=== PATIENT | male | born 1955 | race Caucasian/White ===

== ENCOUNTER 2016-04-18 10:45 | Outpatient (CLI) | payer MEDICAID | END 2016-04-18 10:46 | disposition home or self-care (01) | DX: E78.5 Hyperlipidemia, unspecified (principal) ==

== ENCOUNTER 2016-10-01 10:07 | Outpatient (CLI) | payer MEDICAID ==
[2016-10-01 18:01] LABS: BILIRUBIN,URINE NEGATIVE (NEGATIVE)
[2016-10-01 19:35] LABS: UR CULTURE IF IND INDICATED; WBC,URINE >25 /HPF (0-3)
== END 2016-10-01 10:08 | disposition home or self-care (01) ==
LOC: LAB.F 10:07
PROVIDERS: ATTEND Urology
DX: R35.0 Frequency of micturition (principal)
CPT/HCPCS: 81001; 87077; 87086

== ENCOUNTER 2016-12-27 08:20 | Outpatient (CLI) | payer MEDICAID ==
[2016-12-27 14:13] LABS: BASOPHILS % (AUTO) 0.4 %; EOSINOPHILS # (AUTO) 0.3 10^3/uL (0.0-0.7); EOSINOPHILS % (AUTO) 3.8 %; HCT - HEMATOCRIT 42.9 % (42.0-52.0); HGB - HEMOGLOBIN 14.2 g/dL (14.0-18.0); LYMPHOCYTES # (AUTO) 1.6 10^3/uL (1.5-3.5); LYMPHOCYTES % (AUTO) 23.7 %; MEAN CORPUSCULAR HEMOGLOBIN 27.9 pg (27.0-31.0); MEAN CORPUSCULAR VOLUME 84.5 fL (80.0-94.0); MEAN PLATELET VOLUME 7.9 fL (7.4-11.4); MONOCYTES # (AUTO) 0.5 10^3/uL (0.0-1.0); MONOCYTES % (AUTO) 7.4 %; NEUTROPHILS # (AUTO) 4.4 10^3/uL (1.5-6.6); NEUTROPHILS % (AUTO) 64.7 %; RED BLOOD COUNT 5.08 10^6/uL (4.70-6.10); UNCORRECTED WHITE BLOOD COUNT 6.8 x10^3/uL; WHITE BLOOD COUNT 6.8 x10^3/uL (4.8-10.8)
[2016-12-27 19:56] LABS: ALBUMIN/GLOBULIN RATIO 1.8 (1.0-2.2); BILIRUBIN,TOTAL 0.7 mg/dL (0.2-1.0); BUN - BLOOD UREA NITROGEN 15 mg/dL (6-20); CALCIUM 9.2 mg/dL (8.5-10.3); CARBON DIOXIDE - CO2 28 mmol/L (21-32); CHLORIDE 104 mmol/L (101-111); CHOL/HDL RATIO 4.9 (<5.0); CHOLESTEROL 225 mg/dL; CREATININE 0.9 mg/dL (0.6-1.2); GFR - MDRD 86 (>89); GLUCOSE 95 mg/dL (70-100); HDL CHOLESTEROL 46 mg/dL; LDL/HDL RATIO 3.7 (<3.6); POTASSIUM 3.9 mmol/L (3.5-5.0); SODIUM 138 mmol/L (135-145); TOTAL PROTEIN 6.2 g/dL (6.7-8.2); TRIGLYCERIDES 57 mg/dL; VLDL CHOLESTEROL 11 mg/dL
== END 2016-12-27 08:21 | disposition home or self-care (01) ==
LOC: LAB.N 08:20
PROVIDERS: ATTEND Nurse Practitioner Family
DX: F32.9 Major depressive disorder, single episode, unspecified (principal); E78.5 Hyperlipidemia, unspecified
CPT/HCPCS: 36415; 80053; 80061; 84443; 85025

== ENCOUNTER 2017-03-15 09:41 | Outpatient (CLI) | payer MEDICAID | END 2017-03-15 09:42 | disposition home or self-care (01) | LOC: SC 09:41 | PROVIDERS: ATTEND Nurse Practitioner Family | DX: G47.33 Obstructive sleep apnea (adult) (pediatric) (principal) | CPT/HCPCS: 99212; 99214 ==

== ENCOUNTER 2017-05-23 09:25 | Outpatient (CLI) | payer MEDICAID | END 2017-05-23 09:26 | disposition home or self-care (01) | LOC: SC 09:25 | PROVIDERS: ATTEND Nurse Practitioner Family | DX: G47.33 Obstructive sleep apnea (adult) (pediatric) (principal) | CPT/HCPCS: 99212; 99214 ==